=== PATIENT | female | born 1980 | race Caucasian/White ===

== ENCOUNTER 2016-11-15 10:48 | Emergency (ER) | payer OTHER ==
--- NOTE | 2016-11-15 14:22 | ED CLINICAL REPORT ---
Clinical Report - Physicians/Mid Levels [facility] [address] [place] [address] 11/15/2016 10:54 Patient: VINNY ZURITA Time Seen: 11:24. Arrived- By private vehicle. Historian- patient. HISTORY OF PRESENT ILLNESS Chief Complaint: VAGINAL BLEEDING. This started yesterday and still present. It was abrupt in onset and has been intermittent and waxing/waning. The symptoms are described as mild. The patient has had mild pelvic pain (throb). She has had moderate, constant centrally located lower back pain (radating up her entire back). She has had abnormal bleeding. No missed period(s), irregular periods, pain with urination, urinary frequency or urgency of urination. No hematuria. Last normal menstrual period- 26 Sep 2016 - she reports that this period was heavier than usual. 4. Para 3. Sexually active. REVIEW OF SYSTEMS The patient has had chills and fatigue and experienced sweats. No fever, calf pain, chest pain, cough or pedal edema. No palpitations, abdominal pain, black stools, bloody stools or diarrhea. No nausea, vomiting or urinary problems. The patient has had mild difficulty breathing (last night when getting up). She has had constipation (she took one dose of CalMag the evening before the spotting started). She is currnently nursing her 16 month old son. All systems otherwise negative, except as recorded above. PAST HISTORY ( at age 23 she had very heavy irregular vaginal bleeding that was treated hormonally Practice Coordinator - Tanya Montemayor at [facility] in [facility] [place], PAC in [place]). Problems: OB History. Head Injury. Syncope. Pharyngitis. Dental Pain. Dental Caries. Medications: Vitamin D Oral. Wellbutrin Oral. Allergies: Novocain. Penicillin. Sulfa Antibiotics. SOCIAL HISTORY Current every day light tobacco smoker (cigarette)- less than 1/2 a pack per day. Alcohol use. (not since she became ). Residence: [place] Resides in a house. She lives with spouse. FAMILY HISTORY Diabetes in first-degree relative (mother) and grandparent; hypertension in first-degree relative (father). ADDITIONAL NOTES The nursing notes have been reviewed. PHYSICAL EXAM Vital Signs: 11/15/2016 11:17 BP: 123/80. HR: 107. RR: 12. O2 saturation: 100%. Temp: 98.3 F. Have been reviewed. Appearance: Alert. ENT: Pharynx normal. Neck: Neck supple. Respiratory: No respiratory distress. Breath sounds normal. Abdomen: Soft and nontender. Bowel sounds normal. No organomegaly. No mass. Obese. Back: Normal external inspection. No CVA tenderness. : External inspection normal. Moderate vaginal bleeding, consisting of dark blood, via the cervical os (with possible POC). Moderate right adnexal tenderness. Skin: Skin warm. Normal skin color. Normal skin turgor. Extremities: Extremities nontender. No calf tenderness. No lower extremity edema. LABS, X-RAYS, AND EKG Pelvic Sonogram: Endometrial wall thickening is present. A small amount of free fluid is present. No intrauterine . discussed with the signals collection technician. The study was independently viewed by me. Laboratory Tests: UA-Culture if indicated: (LYDIA: 11/15/2016 11:25) ( MsgRcvd 11/15/2016 11:51) Final results Test Result Flag Units (Reference) URINE COLOR YELLOW URINE APPEARANCE CLEAR URINE GLUCOSE NEGATIVE (NEGATIVE) URINE BILIRUBIN NEGATIVE (NEGATIVE) URINE KETONE NEGATIVE (NEGATIVE) URINE SPECIFIC GRAVITY 1.020 (1.010-1.030) URINE PH 6.0 (5.0-8.0) URINE PROTEIN NEGATIVE (NEGATIVE) URINE UROBILINOGEN 0.2 EU/dL (0.2-1.0) URINE NITRITE NEGATIVE (NEGATIVE) URINE BLOOD 2+ (NEGATIVE) URINE LEUK ESTERASE NEGATIVE (NEGATIVE) URINE RBC 1-3 rbc/hpf (0-1) URINE WBC 1-3 wbc/hpf (0-1) URINE EPITHELIAL CELLS 0-1 EPI/hpf (0-5) URINE BACTERIA NONE SEEN (NONE SEEN) URINE COMMENT CULT NOT INDICATED URINE CULTURES ARE SET-UP BASED ON THE FOLLOWING CRITERIA:POSITIVE NITRITEPOSITIVE LEUKOCYTE ESTERASEGREATER THAN 10 WHITE BLOOD CELLSMODERATE (2+) OR GREATER BACTERIA CBC w Diff: (LYDIA: 11/15/2016 12:05) ( [facility] 11/15/2016 12:12) Final results Test Result Flag Units (Reference) WHITE BLOOD COUNT 16.3 H K/uL (4.5-11.5) RED BLOOD COUNT 4.95 M/uL (4.00-5.20) HEMOGLOBIN 14.7 gm/dL (12.0-16.0) HEMATOCRIT 43.8 % (36.0-46.0) MEAN CELL VOLUME 88 fL (80-100) MEAN CORPUSCULAR HGB 30 pg (26-34) MEAN CORPUSCULAR HGB CONC 34 g/dL (31-37) RED CELL DISTRIBUTION WIDTH 12.7 % (11.6-14.8) PLATELET COUNT 309 K/uL (150-400) NEUTROPHIL % 82.0 H % (50-75) LYMPH % 12.2 L % (25-40) MONO % 3.8 % (3-14) EOSINOPHIL % 1.9 % (0-4) BASOPHIL % 0.1 % (0-2) PT with INR: (LYDIA: 11/15/2016 12:05) ( [facility] 11/15/2016 12:18) Final results Test Result Flag Units (Reference) INR 0.9 (0.8-1.2) Low Intensity Therapy: INR 1.5-2.0 PT range 18.5-23.1Mod.Intensity Therapy: INR 2.0-3.0 PT range 23.1-31.5High Intensity Therapy: INR 2.5-3.5 PT range 27.4-35.5High Intensity Therapy 2: INR 3.0-4.0 PT range 31.5-39.3 APTT 23 L SECONDS (24-34) CMP: (LYDIA: 11/15/2016 12:05) ( [facility] 11/15/2016 13:33) Final results Test Result Flag Units (Reference) GLUCOSE 93 mg/dL (70-110) BUN 12 mg/dL (7-18) CREATININE 0.6 mg/dL (0.6-1.3) Estimated GFR >60 mL/min Estimated GFR- >60 mL/min Note: Persistent reduction over 3 months in eGFR<60 mL/min/1.73 m2 defines CKD. Patients with eGFR values>=60 mL/min/1.73 m2 may also have CKD if evidence ofpersistent proteinuria. Additional information may be foundat www.kidney.org. SODIUM 138 mmol/L (136-145) POTASSIUM 4.2 mmol/L (3.5-5.1) CHLORIDE 102 mmol/L (98-107) CARBON DIOXIDE 25 mmol/L (21-32) CALCIUM 9.4 mg/dL (8.5-10.1) TOTAL PROTEIN 7.8 g/dL (6.4-8.2) ALBUMIN 3.8 g/dL (3.3-5.0) BILIRUBIN, TOTAL 0.2 mg/dL (0.0-1.0) ALKALINE PHOSPHATASE 71 U/L (46-116) AST (SGOT) 12 L U/L (15-37) ALT (SGPT) 24 U/L (12-78) LIPASE 114 U/L (73-393) AMYLASE 36 U/L (25-115) BETA HCG, QUANTITATIVE 2197 mIU/mL REFERENCE RANGE:Adult Males: <2 mIU/mLNon- Females: <6 mIU/mL Females:Approximate Approximate hCGGestational Age Range (mIU/mL) 0-1 week 0-501-2 weeks 40-3002-3 weeks 100-00072-8 weeks 500-69432-6 months 5,000-200,0002-3 months 10,000-100,0002nd trimester 3,000-50,0003rd trimester 1,000-50,000 Wet Prep: (LYDIA: 11/15/2016 12:35) ( MsgRcvd 11/15/2016 12:57) Final results SPECIMEN DESCRIPTION: CERVIX Test Result Flag Units (Reference) WET MOUNT CLUE CELLS:: NONE EPITHELIAL CELLS: RARE -- SOURCE?: CERVIX WHITE BLOOD CELLS: FEW TRICHOMONAS:: NONE -- YEAST:: NONE Type & Rh: (LYDIA: 11/15/2016 12:05) ( MsgRcvd 11/15/2016 13:12) Final results Test Result Flag Units (Reference) PATIENT BLOOD TYPE O Positive . PROGRESS AND PROCEDURES Course of Care: the patient's city alderman arrived late in her visit. She was present during the counseling the patient and her . She says that she will obtain a follow-up quantitative hCG in 48-72 hours. Patient/family counseled. Old medical records ordered. Disposition: Discharged. Condition: stable. CLINICAL IMPRESSION Possible right ectopic . Ultrasound was performed but could not determine the location of the . Complete spontaneous (miscarriage). INSTRUCTIONS Drink plenty of fluids. (Follow-up with your city alderman in 48-72 hours for repeat quantitative hCG and further evaluation as discussed.). Warnings: Further evaluation is necessary. GENERAL WARNINGS: Return or contact your physician immediately if your condition worsens or changes unexpectedly, if not improving as expected, or if other problems arise. Specifically return if pain or bleeding worsens. as discussed. Follow-up: Follow up with your doctor. Understanding of the discharge instructions verbalized by patient. (Electronically signed by Kayode Lopez MD 11/15/2016 14:33)
--- NOTE | 2016-11-15 14:22 | ED ORDER SUMMARY ---
..... Patient: VINNY ZURITA OrderSheet [facility] VisitID: [id number] [place] [address] 36y, F Registration Date/Time: 11/15/2016 ORDER SHEET Weight: 73.9 kg (stated) Allergies: Penicillin, Sulfa Antibiotics, Novocain GENERAL ORDERS: Wet Prep (Cervix) (cervix) Urgent (11:11/15/2016 Shay SHELBY) (Ack 11:30 LTapper) (12:46 MWinterer R.N.) GC/Chlamydia (Cervix) (cervix) Urgent (:11/15/2016 Shay SHELBY) (Ack 11:30 LTapper) (12:46 MWinterer R.N.) CBC w Diff Urgent (:11/15/2016 Shay SHELBY) (Ack 11:30 LTapper) (12:11 MWinterer R.N.) CMP Urgent (:11/15/2016 Shay SHELBY) (Ack 11:30 LTapper) (12:11 MWinterer R.N.) UA-Culture if indicated Urgent (:11/15/2016 Shay SHELBY) (Ack 11:30 LTapper) (11:53 MWinterer R.N.) PT with INR Urgent (:11/15/2016 Shay SHELBY) (Ack 11:30 LTapper) (12:11 MWinterer R.N.) PTT Urgent (:11/15/2016 Shay SEHLBY) (Ack 11:30 LTapper) (12:11 MWinterer R.N.) Amylase Urgent (:11/15/2016 Shay SHELBY) (Ack 11:30 LTapper) (12:11 MWinterer R.N.) Lipase Urgent (:11/15/2016 Shay SHELBY) (Ack 11:30 LTapper) (12:11 MWinterer R.N.) Serum Quantitative Urgent (:11/15/2016 Shay SHELBY) (Ack 11:30 LTapper) (12:11 MWinterer R.N.) Pelvic Exam Setup (:25 11/15/2016 Shay SHELBY) (11:30 MWinterer R.N.) (Ack 11:30 LTapper) US OB 1st Trimester w Transvag (26 Sep 2016) Urgent (12:41 11/15/2016 Shay SHELBY) (Ack 12:45 LTapper) (13:33 MWinterer R.N.) Type & Rh Urgent (12:42 11/15/2016 Shay SHELBY) (Ack 12:45 LTapper) (13:33 MWinterer R.N.) - (products of conception) (13:51 11/15/2016 Shay SHELBY) (Ack 14:13 RKaruga) (14:19 MWinterer R.N.) MEDICATION ORDERS: IV FLUIDS: IV Saline Lock (11:25 11/15/2016 Shay SHELBY) (Ack 11:30 MWinterer R.N.) (11:53 MWinterer R.N.) ORDER SHEET NOTES: [Electronically signed by Kayode Lopez MD (14:33 11/15/2016)] [Electronically signed by Jacquelyn Motta R.N. (14:46 11/15/2016)] [Electronically locked/signed by Jacquelyn Motta R.N. (14:46 11/15/2016)]
--- NOTE | 2016-11-15 14:22 | ED CLINICAL REPORT ---
Clinical Report - Physicians/Mid Levels [facility] [address] [place] [address] 11/15/2016 10:54 Patient: VINNY ZURITA Time Seen: 11:24. Arrived- By private vehicle. Historian- patient. HISTORY OF PRESENT ILLNESS Chief Complaint: VAGINAL BLEEDING. This started yesterday and still present. It was abrupt in onset and has been intermittent and waxing/waning. The symptoms are described as mild. The patient has had mild pelvic pain (throb). She has had moderate, constant centrally located lower back pain (radating up her entire back). She has had abnormal bleeding. No missed period(s), irregular periods, pain with urination, urinary frequency or urgency of urination. No hematuria. Last normal menstrual period- 26 Sep 2016 - she reports that this period was heavier than usual. 4. Para 3. Sexually active. REVIEW OF SYSTEMS The patient has had chills and fatigue and experienced sweats. No fever, calf pain, chest pain, cough or pedal edema. No palpitations, abdominal pain, black stools, bloody stools or diarrhea. No nausea, vomiting or urinary problems. The patient has had mild difficulty breathing (last night when getting up). She has had constipation (she took one dose of CalMag the evening before the spotting started). She is currnently nursing her 16 month old son. All systems otherwise negative, except as recorded above. PAST HISTORY ( at age 23 she had very heavy irregular vaginal bleeding that was treated hormonally Automatic Drill Operator - Tanya Montemayor at [facility] in [place], PAC in [place]). Problems: OB History. Head Injury. Syncope. Pharyngitis. Dental Pain. Dental Caries. Medications: Vitamin D Oral. Wellbutrin Oral. Allergies: Novocain. Penicillin. Sulfa Antibiotics. SOCIAL HISTORY Current every day light tobacco smoker (cigarette)- less than 1/2 a pack per day. Alcohol use. (not since she became ). Residence: [place] Resides in a house. She lives with spouse. FAMILY HISTORY Diabetes in first-degree relative (mother) and grandparent; hypertension in first-degree relative (father). ADDITIONAL NOTES The nursing notes have been reviewed. PHYSICAL EXAM Vital Signs: 11/15/2016 11:17 BP: 123/80. HR: 107. RR: 12. O2 saturation: 100%. Temp: 98.3 F. Have been reviewed. Appearance: Alert. ENT: Pharynx normal. Neck: Neck supple. Respiratory: No respiratory distress. Breath sounds normal. Abdomen: Soft and nontender. Bowel sounds normal. No organomegaly. No mass. Obese. Back: Normal external inspection. No CVA tenderness. : External inspection normal. Moderate vaginal bleeding, consisting of dark blood, via the cervical os (with possible POC). Moderate right adnexal tenderness. Skin: Skin warm. Normal skin color. Normal skin turgor. Extremities: Extremities nontender. No calf tenderness. No lower extremity edema. LABS, X-RAYS, AND EKG Pelvic Sonogram: Endometrial wall thickening is present. A small amount of free fluid is present. No intrauterine . discussed with the patient care technician. The study was independently viewed by me. Laboratory Tests: UA-Culture if indicated: (LYDIA: 11/15/2016 11:25) ( MsgRcvd 11/15/2016 11:51) Final results Test Result Flag Units (Reference) URINE COLOR YELLOW URINE APPEARANCE CLEAR URINE GLUCOSE NEGATIVE (NEGATIVE) URINE BILIRUBIN NEGATIVE (NEGATIVE) URINE KETONE NEGATIVE (NEGATIVE) URINE SPECIFIC GRAVITY 1.020 (1.010-1.030) URINE PH 6.0 (5.0-8.0) URINE PROTEIN NEGATIVE (NEGATIVE) URINE UROBILINOGEN 0.2 EU/dL (0.2-1.0) URINE NITRITE NEGATIVE (NEGATIVE) URINE BLOOD 2+ (NEGATIVE) URINE LEUK ESTERASE NEGATIVE (NEGATIVE) URINE RBC 1-3 rbc/hpf (0-1) URINE WBC 1-3 wbc/hpf (0-1) URINE EPITHELIAL CELLS 0-1 EPI/hpf (0-5) URINE BACTERIA NONE SEEN (NONE SEEN) URINE COMMENT CULT NOT INDICATED URINE CULTURES ARE SET-UP BASED ON THE FOLLOWING CRITERIA:POSITIVE NITRITEPOSITIVE LEUKOCYTE ESTERASEGREATER THAN 10 WHITE BLOOD CELLSMODERATE (2+) OR GREATER BACTERIA CBC w Diff: (LYDIA: 11/15/2016 12:05) ( [facility] 11/15/2016 12:12) Final results Test Result Flag Units (Reference) WHITE BLOOD COUNT 16.3 H K/uL (4.5-11.5) RED BLOOD COUNT 4.95 M/uL (4.00-5.20) HEMOGLOBIN 14.7 gm/dL (12.0-16.0) HEMATOCRIT 43.8 % (36.0-46.0) MEAN CELL VOLUME 88 fL (80-100) MEAN CORPUSCULAR HGB 30 pg (26-34) MEAN CORPUSCULAR HGB CONC 34 g/dL (31-37) RED CELL DISTRIBUTION WIDTH 12.7 % (11.6-14.8) PLATELET COUNT 309 K/uL (150-400) NEUTROPHIL % 82.0 H % (50-75) LYMPH % 12.2 L % (25-40) MONO % 3.8 % (3-14) EOSINOPHIL % 1.9 % (0-4) BASOPHIL % 0.1 % (0-2) PT with INR: (LYDIA: 11/15/2016 12:05) ( [facility] 11/15/2016 12:18) Final results Test Result Flag Units (Reference) INR 0.9 (0.8-1.2) Low Intensity Therapy: INR 1.5-2.0 PT range 18.5-23.1Mod.Intensity Therapy: INR 2.0-3.0 PT range 23.1-31.5High Intensity Therapy: INR 2.5-3.5 PT range 27.4-35.5High Intensity Therapy 2: INR 3.0-4.0 PT range 31.5-39.3 APTT 23 L SECONDS (24-34) CMP: (LYDIA: 11/15/2016 12:05) ( [facility] 11/15/2016 13:33) Final results Test Result Flag Units (Reference) GLUCOSE 93 mg/dL (70-110) BUN 12 mg/dL (7-18) CREATININE 0.6 mg/dL (0.6-1.3) Estimated GFR >60 mL/min Estimated GFR- >60 mL/min Note: Persistent reduction over 3 months in eGFR<60 mL/min/1.73 m2 defines CKD. Patients with eGFR values>=60 mL/min/1.73 m2 may also have CKD if evidence ofpersistent proteinuria. Additional information may be foundat www.kidney.org. SODIUM 138 mmol/L (136-145) POTASSIUM 4.2 mmol/L (3.5-5.1) CHLORIDE 102 mmol/L (98-107) CARBON DIOXIDE 25 mmol/L (21-32) CALCIUM 9.4 mg/dL (8.5-10.1) TOTAL PROTEIN 7.8 g/dL (6.4-8.2) ALBUMIN 3.8 g/dL (3.3-5.0) BILIRUBIN, TOTAL 0.2 mg/dL (0.0-1.0) ALKALINE PHOSPHATASE 71 U/L (46-116) AST (SGOT) 12 L U/L (15-37) ALT (SGPT) 24 U/L (12-78) LIPASE 114 U/L (73-393) AMYLASE 36 U/L (25-115) BETA HCG, QUANTITATIVE 2197 mIU/mL REFERENCE RANGE:Adult Males: <2 mIU/mLNon- Females: <6 mIU/mL Females:Approximate Approximate hCGGestational Age Range (mIU/mL) 0-1 week 0-501-2 weeks 40-3002-3 weeks 100-15839-8 weeks 500-88795-0 months 5,000-200,0002-3 months 10,000-100,0002nd trimester 3,000-50,0003rd trimester 1,000-50,000 Wet Prep: (LYDIA: 11/15/2016 12:35) ( MsgRcvd 11/15/2016 12:57) Final results SPECIMEN DESCRIPTION: CERVIX Test Result Flag Units (Reference) WET MOUNT CLUE CELLS:: NONE EPITHELIAL CELLS: RARE -- SOURCE?: CERVIX WHITE BLOOD CELLS: FEW TRICHOMONAS:: NONE -- YEAST:: NONE Type & Rh: (LYDIA: 11/15/2016 12:05) ( MsgRcvd 11/15/2016 13:12) Final results Test Result Flag Units (Reference) PATIENT BLOOD TYPE O Positive . PROGRESS AND PROCEDURES Course of Care: the patient's imaging technologist arrived late in her visit. She was present during the counseling the patient and her . She says that she will obtain a follow-up quantitative hCG in 48-72 hours. Patient/family counseled. Old medical records ordered. Disposition: Discharged. Condition: stable. CLINICAL IMPRESSION Possible right ectopic . Ultrasound was performed but could not determine the location of the . Complete spontaneous (miscarriage). INSTRUCTIONS Drink plenty of fluids. (Follow-up with your imaging technologist in 48-72 hours for repeat quantitative hCG and further evaluation as discussed.). Warnings: Further evaluation is necessary. GENERAL WARNINGS: Return or contact your physician immediately if your condition worsens or changes unexpectedly, if not improving as expected, or if other problems arise. Specifically return if pain or bleeding worsens. as discussed. Follow-up: Follow up with your doctor. Understanding of the discharge instructions verbalized by patient. (Electronically signed by Kayode Lopez MD 11/15/2016 14:33)
--- NOTE | 2016-11-15 14:22 | ED ORDER SUMMARY ---
..... Patient: VINNY ZURITA OrderSheet [facility] VisitID: [id number] [place] [address] 36y, F Registration Date/Time: 11/15/2016 ORDER SHEET Weight: 73.9 kg (stated) Allergies: Penicillin, Sulfa Antibiotics, Novocain GENERAL ORDERS: Wet Prep (Cervix) (cervix) Urgent (11:11/15/2016 Shay SHELBY) (Ack 11:30 LTapper) (12:46 MWinterer R.N.) GC/Chlamydia (Cervix) (cervix) Urgent (:11/15/2016 Shay SHELBY) (Ack 11:30 LTapper) (12:46 MWinterer R.N.) CBC w Diff Urgent (:11/15/2016 Shay SHELBY) (Ack 11:30 LTapper) (12:11 MWinterer R.N.) CMP Urgent (:11/15/2016 Shay SHELBY) (Ack 11:30 LTapper) (12:11 MWinterer R.N.) UA-Culture if indicated Urgent (:11/15/2016 Shay SHELBY) (Ack 11:30 LTapper) (11:53 MWinterer R.N.) PT with INR Urgent (:11/15/2016 Shay SHELBY) (Ack 11:30 LTapper) (12:11 MWinterer R.N.) PTT Urgent (:11/15/2016 Shay SHELBY) (Ack 11:30 LTapper) (12:11 MWinterer R.N.) Amylase Urgent (:11/15/2016 Shay SHELBY) (Ack 11:30 LTapper) (12:11 MWinterer R.N.) Lipase Urgent (:11/15/2016 Shay SHELBY) (Ack 11:30 LTapper) (12:11 MWinterer R.N.) Serum Quantitative Urgent (:11/15/2016 Shay SHELBY) (Ack 11:30 LTapper) (12:11 MWinterer R.N.) Pelvic Exam Setup (:25 11/15/2016 Shay SHELBY) (11:30 MWinterer R.N.) (Ack 11:30 LTapper) US OB 1st Trimester w Transvag (26 Sep 2016) Urgent (12:41 11/15/2016 Shay SHELBY) (Ack 12:45 LTapper) (13:33 MWinterer R.N.) Type & Rh Urgent (12:42 11/15/2016 Shay SHELBY) (Ack 12:45 LTapper) (13:33 MWinterer R.N.) - (products of conception) (13:51 11/15/2016 Shay SHELBY) (Ack 14:13 RKaruga) (14:19 MWinterer R.N.) MEDICATION ORDERS: IV FLUIDS: IV Saline Lock (11:25 11/15/2016 Shay SHELBY) (Ack 11:30 MWinterer R.N.) (11:53 MWinterer R.N.) ORDER SHEET NOTES: [Electronically signed by Kayode Lopez MD (14:33 11/15/2016)] [Electronically signed by Jacquelyn Motta R.N. (14:46 11/15/2016)] [Electronically locked/signed by Jacquelyn Motta R.N. (14:46 11/15/2016)]
--- NOTE | 2016-11-15 14:22 | ED NURSING NOTES ---
Clinical Report - Nurses [facility] [address] [place] [address] 11/15/2016 10:54 Patient: VINNY ZURITA TRIAGE Acuity: LEVEL 3. Chief Complaint: ABDOMINAL CRAMPS and VAGINAL BLEEDING. Alert. No acute distress. SEPSIS SCREEN: Sepsis Screen. Negative (no infection suspected/documented). --11:22 Jacquelyn Motta R.N. 11:17 11/15/16. BP: 123/80. HR: 107. RR: 12. O2 saturation: 100% on room air. Temp: 98.3 F (oral). --11:22 Jacquelyn Motta R.N. Weight: 73.9 kg stated. Height/Length: 61 inches Per Patient. BMI: 30.8. --11:21 Jacquelyn Motta R.N. Medications Wellbutrin Oral. --11:18 Jacquelyn Motta R.N. Medication/allergy information source: the patient. --11:22 Jacquelyn Motta R.N. Allergies Penicillin. --11:18 Jacquelyn Motta R.N. Sulfa Antibiotics. --11:18 Jacquelyn Motta R.N. Novocain. --11:18 Jacquelyn Motta R.N. History Arrived by private vehicle. Historian: patient. ( Pt reports she is approx 6 weeks and began spotting last night.). PAST MEDICAL HX: Immunizations: status is unknown. Last normal menstrual period- Sep 26 2016. OB history: G 4; P 3. SOCIAL HX: Current every day light tobacco smoker- less than 1/2 a pack per day. No alcohol use or drug use. FALL RISK ASSESSMENT: Fall risk assessment completed. No fall risk identified. NUTRITIONAL RISK ASSESSMENT: The nutritional risk assessment revealed no deficiencies. FUNCTIONAL ASSESSMENT: Functional assessment: no impairments noted. LEARNING NEEDS ASSESSMENT: The learning needs assessment revealed no barriers. SKIN INTEGRITY ASSESSMENT: Skin integrity risk assessment completed. No skin integrity risk identified. --11:22 Winterer, Jacquelyn, R.N. Interventions ID band on patient. To treatment room. --11: Jacquelyn Motta R.N. PHYSICAL ASSESSMENT 11:11/15/16. Ambulatory to room. GENERAL / NEURO / PSYCH: Alert. Oriented X 4. Appears in no acute distress. HEENT: Mucous membranes are pink. RESPIRATORY: Respirations not labored. CVS: Capillary refill less than 2 seconds. GI / : Abdomen soft and nontender. SKIN: Skin is warm and dry. --11: Jacquelyn Motta R.N. NURSING PROGRESS NOTES 11:11/15/16. Patient gowned. Two patient identifiers checked. Call light placed in reach. Side rails up x 1. Bed placed in lowest position. Brakes of bed on. Patient ready for evaluation- chart flagged and ED physician notified. --11: Jacquelyn Motta R.N. 11:30 11/15/16. Checked patient name and birthdate: patient confirmed. Instructions provided to collect clean catch urine and patient verbalized understanding. Clean catch urine collected with return of yellow-colored clear urine; sample sent to lab for urinalysis and HCG. Specimen labeled in the presence of the patient. --11: Jacquelyn Motta R.N. 11:52 11/15/2016 Site #1 started via IV in the right hand with an 22g angiocath, with aseptic technique and good blood return; one attempt. Saline lock flushed with 10 mL saline. --11:52 Jacquelyn Motta R.N. 12:05. Patient ID band checked for patient name and birthdate: patient confirmed. Blood samples drawn from the right antecubital space with syringe 22g by tech per protocol ; labeled in presence of the patient: green, purple and blue top. --12:10 Ester Melendrez 12:50 11/15/16. PELVIC EXAM: Pelvic exam performed by ED physician. Assisted by one nurse. Preparation: pelvic tray and culture medium; patient placed in lithotomy position. Procedure: speculum exam. Light amount of vaginal bleeding noted with clots and possible tissue. Specimens collected and sent to lab: GC, chlamydia and products of conception. Status post-procedure: she was stable. Total time of assist / procedure: 15 minutes. --12:50 Jacquelyn Motta R.N. 14:16 11/15/16. The patient reports no complaints and she is calm and resting quietly. GI / : Abdomen soft. SKIN: Skin is warm and dry. Visitor at bedside. --14:16 Jacquelyn Motta R.N. 14:23 11/15/16. BP: 117/83. HR: 103. RR: 12. O2 saturation: 99% on room air. --14:24 Jacquelyn Motta R.N. DISPOSITION / DISCHARGE Departure time: 14:30 Nov 15 2016. Condition at departure: stable. No learning barriers present. Discharge instructions provided and reviewed with the patient. Patient verbalized understanding. Written instructions provided in Welsh. The patient was discharged by the physician. She was discharged home and accompanied by spouse. She left the Emergency Department ambulatory and via private vehicle. Spouse driving. --14:45 Jacquelyn Motta R.N. 14:44 11/15/16. BP: 117/83. HR: 103. RR: 12. O2 saturation: 99% on room air. Temp: 98.4 F (oral). Pain level now: 11/22. --14:45 Jacquelyn Motta R.N. 14:31 11/15/2016 Site #1 removed upon discharge. Catheter intact. Manual pressure applied. --14:46 Jacquelyn Motta R.N. Locked/Released at 11/15/2016 14:46 by Jacquelyn Motta R.N.
--- NOTE | 2016-11-15 14:34 | DIAGNOSTIC IMAGING REPORT ---
PROCEDURE: US OB 1ST TRIMESTER W/TRANSVAG INDICATION: PAIN TECHNIQUE: Feliciano scale, color, and spectral Doppler transabdominal and endovaginal sonographic images of the uterus were obtained. COMPARISON: None. FINDINGS: TRANSABDOMINAL SCANS: The uterus is vertically oriented in position. The endometrium is thickened but no gestational sac was identified. There is a trace amount of fluid in the endometrial canal at the fundus. No suspicious adnexal masses. No significant free pelvic fluid. TRANSVAGINAL SCANS: The uterus is retroverted on insertion of the vaginal probe. The endometrium is thickened measuring 18.3 mm. The echotexture is heterogeneous. No focal endometrial fluid collection or gestational sac. Normal myometrial and endometrial vascularity. There is a small amount of free pelvic fluid. The left ovary has a normal appearance. The right ovary was not seen. No suspicious adnexal mass. IMPRESSION: 1. No evidence of intrauterine . 2. Heterogeneous, thickened endometrium without focal gestational sac may indicate a very early versus missed spontaneous . Continued follow-up with Beta hCG levels is recommended. Ectopic is not entirely excluded. 3. Nonvisualization of the right ovary but no suspicious adnexal mass.
--- NOTE | 2016-11-15 14:47 | ED MAR SUMMARY ---
..... Medication Administration Record [facility] [address] [id number] Patient: VINNY ZURITA Visit ID: [id number] 36y, F Weight: 73.9 kg Height/Length: 61 in BMI: 30.8 ALLERGIES: Novocain, Sulfa Antibiotics, Penicillin
--- NOTE | 2016-11-15 14:47 | ED MED RECONCILIATION SUMMARY ---
Patient: VINNY ZURITA Medication Reconciliation Report [facility] VisitID: [id number] [address] [place] [address] 36y, F Registration Date/Time: 11/15/2016 Weight: 73.9 kg Height/Length: 61 in. BMI: 30.8 ALLERGIES: Novocain, Penicillin, Sulfa Antibiotics The patient's Home Medications are listed below: THE FOLLOWING MEDICATIONS NEED TO BE RECONCILED: Vitamin D Oral Wellbutrin Oral The source(s) of the original Home Medication information: patient The following Medications were given to the patient in the Emergency Department: None. The following Medications were prescribed to the patient: None.
--- NOTE | 2016-11-15 14:47 | ED DISCHARGE INSTRUCTIONS ---
Patient: VINNY ZURITA General Instructions [facility] VisitID: [id number] [place] [address] 36y, F Registration Date/Time: 11/15/2016 Complete spontaneous (miscarriage). INSTRUCTIONS Drink plenty of fluids. 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 Warnings: Further evaluation is necessary. GENERAL WARNINGS: Return or contact your physician immediately if your condition worsens or changes unexpectedly, if not improving as expected, or if other problems arise. Specifically return if pain or bleeding worsens. as discussed. Follow-up: Follow up with your doctor. Understanding of the discharge instructions verbalized by patient. ADDITIONAL INFORMATION Miscarriage, Spontaneous (Completed) Todays exam shows that your has ended suddenly. While this may be an emotionally difficult time for you, know that it is not an uncommon event. A miscarriage can be due to various causes. These include a problem with the babys chromosomes (genes that carry the information needed for life) or with fertilization or implantation that didnt happen correctly. In most cases no cause can be found. Be assured that this miscarriage was not the result of anything that you did wrong, and it will not interfere with your ability to become in the future. It appears that your miscarriage is complete and all tissue from the has passed. If there are parts of the tissue that remain in the uterus, you will probably have more cramping and bleeding. Home Care: You may resume normal activities if you are not having heavy bleeding or pain. Until the bleeding stops completely and to prevent infection: Do not have sexual intercourse for as long as your healthcare provider tells you. Use sanitary pads instead of tampons. Do not douche. If you feel sadness or grief, it may help to talk about your feelings with family and friends, or with a counselor. Follow Up: Make an appointment to see your doctor in the next one to two weeks for a checkup. If cramping and bleeding return and continue for more than a few days, call your doctor or return here for an exam. The doctor may need to remove remaining tissue from the uterus to stop the bleeding and prevent infection. Or, you may be prescribed medication to take at home to help your body expel the remaining tissue. Note: If you had an ultrasound it will be reviewed by a specialist. You will be notified of any new findings that may affect your care. Get Prompt Medical Attention if any of the following occur: Heavy bleeding (soaking one new pad an hour over three hours) Bleeding that does not stop after ten days Foul-smelling vaginal discharge Fever of 100.4F (38C) or higher, or as directed by your healthcare provider Increasing lower abdominal pain Weakness, dizziness, or fainting Abdominal Pain And Early [R/O Sab, Ectopic: Serial Q-Hcg's] Based on your visit today, we know you are . But, the exact cause of your abdominal (stomach) pain is not certain. Some pain or bleeding may occur in a NORMAL . But pain may also be a sign of a MISCARRIAGE or an ECTOPIC (baby growing in the Fallopian tube instead of the uterus). An ectopic is a very serious condition. It can lead to severe internal bleeding and even . Therefore, further tests are needed to find out the cause of your symptoms. These may include: ULTRASOUND - A pelvic ultrasound can detect a normal as early as 4-5 weeks of age. But, if the ultrasound test does not show the baby inside the uterus, it means that i) you have a normal less than 4 weeks old, ii) you are having or recently had a miscarriage or iii) you have an ectopic . QUANTITATIVE HCG - a test that measures the amount of hormone in your blood. Comparing today's test result to a repeat test in 48 hours shows whether or not you have a normal . LAPAROSCOPY - a surgical procedure where a tube with a light is placed inside the abdomen to look directly at the pelvic organs. This is used when it is not safe to wait 48 hours for blood test results. Important If you do have an ectopic , there is a small chance that the growing fetus can tear the Fallopian tube and cause severe internal bleeding. If this happens, there may be SUDDEN SEVERE LOWER ABDOMINAL PAIN, VAGINAL BLEEDING, WEAKNESS, DIZZINESS and sometimes FAINTING. If any of these symptoms occur: CALL AN AMBULANCE (call 911) or return immediately to the hospital. DO NOT DRIVE YOURSELF. DO NOT GO TO YOUR DOCTOR'S OFFICE OR TO A CLINIC. Home Care: Rest until your next exam. Do not perform any strenuous activity. Eat a light diet with foods that are easy to digest. Avoid sexual intercourse until all symptoms have gone away and you are cleared by your doctor. Follow Up with your doctor or this facility as advised for repeat blood testing. [NOTE: If you had an X-ray or ultrasound test, it will be reviewed by a specialist. You will be notified of any new findings that may affect your care.] Get Prompt Medical Attention if any of the following occur: Sudden or gradual worsening abdominal pain Fainting, dizziness or weakness when standing Heavy vaginal bleeding (soaking one pad an hour for three hours) Vaginal bleeding for more than 5 days Repeated vomiting or diarrhea Pain that moves to the right lower abdomen (stomach) Blood in vomit or bowel movements (dark red or black color) Fever of 100.4F (38C) or higher, or as directed by your healthcare provider You have been given the following additional information: Miscarriage, Spontaneous (Completed) Abdominal Pain, Early (Electronically signed by Kayode Lopez MD 11/15/2016 14:33)
--- NOTE | 2016-11-15 14:47 | ED MAR SUMMARY ---
..... Medication Administration Record [facility] [address], [place] [id number] Patient: VINNY ZURITA Visit ID: [id number] 36y, F Weight: 73.9 kg Height/Length: 61 in BMI: 30.8 ALLERGIES: Novocain, Sulfa Antibiotics, Penicillin
--- NOTE | 2016-11-15 14:47 | ED MED RECONCILIATION SUMMARY ---
Patient: VINNY ZURITA Medication Reconciliation Report [facility] VisitID: [id number] [address] [place] [place] [address] 36y, F Registration Date/Time: 11/15/2016 Weight: 73.9 kg Height/Length: 61 in. BMI: 30.8 ALLERGIES: Novocain, Penicillin, Sulfa Antibiotics The patient's Home Medications are listed below: THE FOLLOWING MEDICATIONS NEED TO BE RECONCILED: Vitamin D Oral Wellbutrin Oral The source(s) of the original Home Medication information: patient The following Medications were given to the patient in the Emergency Department: None. The following Medications were prescribed to the patient: None.
== END 2016-11-15 14:30 | disposition home or self-care (01) ==
LOC: ED SRH 10:48
DX: O03.9 Complete or unspecified spontaneous abortion without complication (principal); F17.210 Nicotine dependence, cigarettes, uncomplicated; Z88.0 Allergy status to penicillin; Z88.2 Allergy status to sulfonamides
CPT/HCPCS: 90001; 90004; 90100; 90155; 90195; 90197; 91227; 91228; 92235; 92530; 94001; 94060; 95059